=== PATIENT | male | born 1990 | race Caucasian/White ===

== ENCOUNTER 2016-12-19 16:50 | Emergency (ER) | END 2016-12-19 18:05 | disposition home or self-care (01) | DX: J40 Bronchitis, not specified as acute or chronic (principal) ==

== ENCOUNTER 2017-07-09 02:14 | Emergency (ER) | payer SELFPAY ==
[~2017-07-09] VITALS: Ht 165.1 cm; Wt 80.0 kg
[~2017-07-09 02:14] MED LIST: ALBU8.5H3 INH; D-ME473S18 PO; MED4DP PO
[2017-07-09 02:19] VITALS: Ht 165.1 cm; Wt 80.0 kg
[2017-07-09] MEDS ORDERED: LIDOCAINE/MYLANTA 40 ML BTL PO STA (03:02)
[2017-07-09] MEDS ORDERED: KETOROLAC 30 MG INJ IM STA (03:02)
[2017-07-09] MEDS ORDERED: FAMOTIDINE 20 MG TAB PO STA (03:02)
[2017-07-09] MEDS ORDERED: BELLADONNA/PHENOBARBITAL TAB PO STA (03:02)
[2017-07-09] MEDS ORDERED: ONDANSETRON (ODT) 4 MG TAB ODT STA (03:02)
[2017-07-09 03:59] LABS: BASOPHILS % 0.2 % (0.0-2.0); EOSINOPHILS # 0.1 10^3/ul (0.0-0.5); EOSINOPHILS % 1.1 % (0.0-7.0); HEMATOCRIT 44.2 % (42.0-52.0); HEMOGLOBIN 15.3 g/dl (14.0-18.0); LYMPHOCYTES # 2.2 10^3/ul (0.8-2.9); LYMPHOCYTES % 17.1 % (15.0-51.0); MEAN CORPUSCULAR HEMOGLOBIN 31.9 pg (29.0-33.0); MEAN CORPUSCULAR HGB CONC 34.6 g/dl (32.0-37.0); MEAN CORPUSCULAR VOLUME 92.3 fl (82.0-101.0); MEAN PLATELET VOLUME 10.3 fl (7.4-10.4); MONOCYTE # 0.6 10^3/ul (0.3-0.9); MONOCYTES % 4.9 % (0.0-11.0); NEUTROPHILS % 76.3 % (39.0-77.0); PLATELET COUNT 335 10^3/UL (140-415); RED BLOOD COUNT 4.79 10^6/ul (4.70-6.10); RED CELL DISTRIBUTION WIDTH 12.3 % (11.5-14.5); WHITE BLOOD COUNT 12.9 10^3/ul (4.8-10.8)
[2017-07-09 04:32] LABS: ALANINE AMINOTRANSFERASE 419 IU/L (13-69); ALBUMIN 4.9 g/dl (3.3-4.9); ALBUMIN/GLOBULIN RATIO 1.68; ALKALINE PHOSPHATASE 101 IU/L (42-121); ASPARTATE AMINO TRANSFERASE 491 IU/L (15-46); BILIRUBIN,INDIRECT 0.5 mg/dl (0-1.1); BILIRUBIN,TOTAL 0.9 mg/dl (0.2-1.3); BLOOD UREA NITROGEN 20 mg/dl (7-20); CALCIUM 9.7 mg/dl (8.4-10.2); CARBON DIOXIDE 27 mmol/L (21-31); CHLORIDE 103 mmol/L (97-110); GLUCOSE 103 mg/dl (70-220); SODIUM 144 mmol/L (135-144); TOTAL PROTEIN 7.8 g/dl (6.1-8.1)
[2017-07-09 04:33] LABS: ANION GAP 18 (8-16)
[2017-07-09 04:42] LABS: TROPONIN-I < 0.012 ng/ml (0.00-0.12)
[2017-07-09] MEDS ORDERED: MAG355OR14 PO (04:43)
[2017-07-09] MEDS ORDERED: FAMO40TA52 PO (04:43)
[2017-07-09] MEDS ORDERED: ONDA4TAB8 PO (04:43)
--- NOTE | 2017-07-09 04:59 | ERD ---
ER Documentation Chief Complaint Date/Time DATE: 07/09/17 TIME: 04:54 Chief Complaint c/o abd pain x 3 days. (+) nausea. HPI 26-year-old man complains of epigastric abdominal pain 3 days. He has had belching and bloating as well. Pain precipitated by p.o. intake. He denies fevers or chills, no blood per rectum, no chest pain or shortness of breath, no weight loss, no headache or blurry vision. Patient denies fevers or chills. ROS All systems reviewed and are negative except as per history of present illness. Medications Home Meds Active Scripts Ondansetron Hcl* (Zofran*) 4 Mg Tablet, 4 MG PO Q8H Y for NAUSEA AND/OR VOMITING , #12 TAB Prov:SANTO PACE MD 07/09/17 Famotidine* (Famotidine*) 40 Mg Tablet, 40 MG PO HS, #30 TAB Prov:SANTO PACE MD 07/09/17 Mag Hydrox/Al Hydrox/Simeth (Maalox Advanced Suspension) 355 Ml Oral.susp, 2 TSP PO TID for PAIN, #24 OZ Prov:SANTO PACE MD 07/09/17 Albuterol Sulfate* (Proair HFA*) 8.5 Gm Hfa.aer.ad, 2 PUFF INH Q4, #1 INHALER Prov:GIGI CARTWRIGHT 12/19/16 Dextromethorphan Hb-Promethazine Hcl (Promethazine DM Syrup) 473 Ml Syrup, 10 ML PO Q6H Y for COUGH, #4 OZ Prov:GIGI CARTWRIGHT 12/19/16 Methylprednisolone* (Medrol* DOSE PACK) 4 Mg/Dose-Pack Tab.ds.pk, 4 MG PO . DIRECTED for 6 Days, PACKET Prov:GIGI CARTWRIGHT 12/19/16 Allergies Allergies: Coded Allergies: No Known Allergy (Unverified , 07/09/17) PMhx/Soc None History of Surgery: No Anesthesia Reaction: No Hx Neurological Disorder: No Hx Respiratory Disorders: No Hx Cardiac Disorders: No Hx Psychiatric Problems: No Hx Miscellaneous Medical Probl: Yes (gastritis) Hx Tobacco Use: Yes Smoking Status: Current some day smoker FmHx Family History: No diabetes Physical Exam Vitals Vital Signs Date Time Temp Pulse Resp B/P Pulse Ox O2 Delivery O2 Flow Rate FiO2 07/09/17 02:19 98.1 92 18 131/83 98 Physical Exam GENERAL: Well-developed, well-nourished, well-hydrated, in no apparent distress , looks nontoxic in appearance HEENT: Moist mucous membranes, pink conjunctiva, no cervical spine tenderness or step-off deformities, no goiter, no jaundice or icterus, extraocular movements intact without pain. No submandibular induration, and no pharyngeal erythema NEURO: Alert and oriented 3, cranial nerves II through XII intact bilaterally, pupils equal round reactive to light, no focal deficits or facial asymmetry, sensation intact distally Strength 5/5 in upper and lower extremities bilaterally CARDIAC: Regular rate and rhythm, no murmurs rubs or gallops LUNGS: Clear bilaterally no wheezing crackles or stridor ABDOMEN: No Lovell's sign, no McBurney's point tenderness, belly is otherwise soft, no obvious hepatomegaly palpated, no guarding, no rigidity, no rebound, no psoas sign no obturator sign. Normoactive bowel sounds SKIN: Warm and dry to touch, no abrasions, contusions, or hematomas, no lacerations, no ecchymosis, no target lesions, and without ulcers EXTREMITIES: No clubbing cyanosis or edema, calves are bilaterally symmetrical, no Homans sign, no popliteal cord sign. Distal pulses equal and bilateral PSYCH: Normal affect without agitation or irritability Result Diagram: 07/09/175 07/09/17 0315 Results 24 hrs Laboratory Tests Test 07/09/17 03:15 White Blood Count 12.910^3/ul Red Blood Count 4.7910^6/ul Hemoglobin 15.3g/dl Hematocrit 44.2% Mean Corpuscular Volume 92.3fl Mean Corpuscular Hemoglobin 31.9pg Mean Corpuscular Hemoglobin Concent 34.6g/dl Red Cell Distribution Width 12.3% Platelet Count 63975^3/UL Mean Platelet Volume 10.3fl Neutrophils % 76.3% Lymphocytes % 17.1% Monocytes % 4.9% Eosinophils % 1.1% Basophils % 0.2% Nucleated Red Blood Cells % 0.0/100WBC Neutrophils # (Manual) 1010^3/ul Lymphocytes # 2.210^3/ul Monocytes # 0.610^3/ul Eosinophils # 0.110^3/ul Basophils # 0.010^3/ul Nucleated Red Blood Cells # 0.010^3/ul Sodium Level 144mmol/L Potassium Level 4.0mmol/L Chloride Level 103mmol/L Carbon Dioxide Level 27mmol/L Anion Gap 18 Blood Urea Nitrogen 20mg/dl Creatinine 1.10mg/dl Glucose Level 103mg/dl Calcium Level 9.7mg/dl Total Bilirubin 0.9mg/dl Direct Bilirubin 0.40mg/dl Indirect Bilirubin 0.5mg/dl Aspartate Amino Transf (AST/SGOT) 491IU/L Alanine Aminotransferase (ALT/SGPT) 419IU/L Alkaline Phosphatase 101IU/L Troponin I < 0.012ng/ml Total Protein 7.8g/dl Albumin 4.9g/dl Globulin 2.90g/dl Albumin/Globulin Ratio 1.68 Lipase 91U/L Current Medications Medications (Trade) Dose Ordered Sig/[place] Route PRN Reason Start Time Stop Time Status Last Admin Dose Admin Famotidine (Pepcid) 40 mg ONCE STAT PO 07/09/17 03:02 07/09/17 03:05 DC 07/09/17 03:19 Miscellaneous Medication (Gi Cocktail (2)) 40 ml ONCE STAT PO 07/09/17 03:02 07/09/17 03:05 DC 07/09/17 03:18 Belladonna/ Phenobarbital () 2 tab ONCE STAT PO 07/09/17 03:02 07/09/17 03:05 DC 07/09/17 03:19 Ketorolac Tromethamine (Toradol) 30 mg ONCE STAT IM 07/09/17 03:02 07/09/17 03:05 DC 07/09/17 03:19 Ondansetron HCl (Zofran Odt) 4 mg ONCE STAT ODT 07/09/17 03:02 07/09/17 03:05 DC 07/09/17 03:19 Procedures/MDM I administered Toradol 30 mg intramuscular injection, Zofran 4 mg p.o., famotidine 40 mg p.o., Maalox suspension 30 cc p.o. with good effect. Patient symptoms improved. Patient's CBC and and electrolytes were normal, liver function tests revealed transaminitis with an AST/ALT of 491/419, lipase was normal. Patient's pain improved although I did tell him to return here tomorrow for repeat liver function tests, I will defer imaging for now I do not suspect cholecystitis or hepatitis. Patient does admit to drinking alcohol but denies alcoholism. Abdominal examination was repeated by me and remains benign. Differential diagnoses considered, included but not limited to acute coronary syndrome, pulmonary embolism, aortic dissection, abdominal aortic aneurysm, sepsis, stroke, meningitis, encephalitis, pneumonia, appendicitis, cholecystitis , bowel obstruction, pyelonephritis, nephrolithiasis, cystitis, as well as metabolic, hematologic, and electrolyte abnormalities. As well as abscess, cellulitis, fractures, and dislocations. Patient feels much better at this time, and vital signs are normal, symptoms have improved. I did give strict instructions to return to the ED if symptoms continue or worsen, patient will otherwise follow-up with primary care physician. Patient understood instructions and agreed to plan. Disclaimer: Inadvertent spelling and grammatical errors are likely due to EHR/ dictation software use and do not reflect on the overall quality of patient care. Also, please note that the electronic time recorded on this note does not necessarily reflect the actual time of the patient encounter. Departure Diagnosis: Primary Impression: Abdominal pain Abdominal location: epigastric Qualified Code: R10.13 - Epigastric pain Additional Impression: Transaminitis Condition: Good Patient Instructions: Abdominal Pain, Unkown Cause, (Male) SANTO PACE MD Jul 09, 2017 04:59
[2017-07-09 05:19] VITALS: BP 119/69; PULSE 78; RESP 20
== END 2017-07-09 05:22 | disposition home or self-care (01) ==
LOC: E/R 02:14
DX: R10.13 Epigastric pain (principal); R74.0 Nonspecific elevation of levels of transaminase and lactic acid dehydrogenase [LDH]; F17.210 Nicotine dependence, cigarettes, uncomplicated; R11.0 Nausea
CPT/HCPCS: 36415; 80053; 83690; 84484; 85025; 96372; 99284; J1885

== ENCOUNTER 2018-05-01 10:59 | Inpatient (IN) | END 2018-05-02 16:46 | disposition home or self-care (01) | DRG 418 ==

== ENCOUNTER 2018-08-18 10:21 | Emergency (ER) | END 2018-08-18 11:42 | disposition home or self-care (01) ==